=== PATIENT | female | born 1980 | race Caucasian/White ===

== ENCOUNTER 2017-07-19 21:40 | Emergency (ER) | payer OTHER ==
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
[2017-07-19] MEDS ORDERED: Ketorolac 60 MG/2 ML SDV IM ONE (22:13)
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
== END 2017-07-19 23:20 | disposition home or self-care (01) ==
LOC: MW.ED 21:40
DX: S39.012A Strain of muscle, fascia and tendon of lower back, initial encounter (principal); S16.1XXA Strain of muscle, fascia and tendon at neck level, initial encounter; T14.8XXA Other injury of unspecified body region, initial encounter; F17.210 Nicotine dependence, cigarettes, uncomplicated; Z88.5 Allergy status to narcotic agent; Z91.018 Allergy to other foods; Z91.048 Other nonmedicinal substance allergy status; Y92.410 Unspecified street and highway as the place of occurrence of the external cause; V49.49XA Driver injured in collision with other motor vehicles in traffic accident, initial encounter
CPT/HCPCS: 71045; 72040; 72100; 73030; 96372; 99284; J1885; 99283